=== PATIENT | female | born 1980 | race Caucasian/White ===

== ENCOUNTER 2020-08-28 09:45 | Outpatient (REF) | payer OTHER, SELFPAY ==
[2020-08-28 11:03] LABS: MANUAL DIFF FLAG NO
[2020-08-28 11:17] LABS: Basophils Absolute Auto 0.1 X10*3/uL (0.0-0.2); Eosinophils Percent Auto 0.5 % (0-4); Hematocrit 38.9 % (37-47); Hemoglobin 12.8 g/dl (12.0-16.0); Imm Gran Abs Auto 0.02 X10*3/uL (0.00-0.03); Imm Gran Pct Auto 0.3 % (0.0-0.4); Lymphocytes Absolute Auto 1.6 X10*3/uL (1.2-4.9); Lymphocytes Percent Auto 27.3 % (20-40); Mean Corpuscular HGB Conc 32.9 g/dl (31.0-35.0); Mean Corpuscular Hemoglobin 30.9 pg (27.0-33.0); Mean Platelet Volume 10.5 fL (9.4-12.3); Monocytes Absolute Auto 0.3 X10*3/uL (0.1-1.2); Monocytes Percent Auto 5.8 % (2-11); Neutrophils Absolute Auto 3.8 X10*3/uL (2.0-8.3); Neutrophils Percent Auto 65.1 % (45-73); Platelet Count 272 X10*3/uL (160-400); Red Blood Count 4.14 X10*6/uL (4.20-5.50); Red Cell Distribution Width 11.8 % (11.0-16.0); White Blood Count 5.9 X10*3/uL (4.8-10.8)
[2020-08-28 12:12] LABS: Anion Gap 10 (12-20); Blood Urea Nitrogen 15 mg/dL (9-16); Calcium 8.2 mg/dL (8.4-10.2); Carbon Dioxide 25 mmol/L (22-29); Chloride 107 mmol/L (96-108); Cholesterol 159 mg/dL; Estimated Glomerular Filt Rate > 60; Glucose Fasting 69 mg/dL (60-99); HDL Cholesterol 46 mg/dL; LDL Cholesterol Calculated 104 mg/dl; Potassium 3.9 mmol/l (3.3-5.1); Sodium 138 mmol/L (135-145); Triglycerides 46 mg/dL
== END 2020-08-28 09:46 | disposition home or self-care (01) ==
LOC: HO.HMGCLDS 09:45
PROVIDERS: PCP Internal Medicine; Visit Provider Internal Medicine
DX: Z00.00 Encounter for general adult medical examination without abnormal findings (principal)
CPT/HCPCS: 36415; 80048; 80061; 85025

== ENCOUNTER 2020-11-06 14:27 | Outpatient (REF) | payer OTHER, SELFPAY ==
--- NOTE | ~2020-11-06 | MM_ITS ---
EXAMINATION: MM DIAGNOSTIC DIGITAL BREAST TOMOSYNTHESIS, RIGHT US DIAGNOSTIC ULTRASOUND BREAST, RIGHT CLINICAL INFORMATION: Palpable fullness noted at clinical exam right breast 8:00 position. No palpable concern noted by patient. No discharge or mastodynia. Family history breast cancer, maternal grandmother. The lifetime risk of breast cancer based on the Tyrer-Cuzick Model is 15%. COMPARISON: Mammography: 05/22/2020, 07/30/2018 (baseline) TECHNIQUE: Digital breast tomosynthesis is performed in both the craniocaudal and mediolateral oblique views along with computer-aided detection (CAD). Synthesized 2D images are generated from the tomosynthesis. Ultrasound right breast is targeted to the 7:00 through 10:00 position. Grayscale imaging and color Doppler are performed without and with harmonics. FINDINGS: The breasts are heterogeneously dense, which may obscure small masses (ACR BI-RADS breast composition Category c). There are no significant masses, abnormal calcifications, or other abnormalities. Parenchymal pattern is similar to prior studies. No developing density. No skin thickening or coarsening of the Brian's ligaments. Ultrasound right breast demonstrates no cystic or solid mass, architectural abnormality, or focal duct ectasia. No skin thickening or edema tracking in soft tissue planes. Results are discussed with the patient at time of visit. MM/MM tomosynthesis diagnostic RT IMPRESSION: No mammographic evidence of malignancy. Unremarkable right breast ultrasound. ASSESSMENT: BI-RADS 1: Negative RECOMMENDATION: 1. Patient should be managed based on the clinical impression. If clinically indicated, further evaluation may be considered with surgical consult. Decision to proceed with biopsy should be based on clinical grounds and degree of clinical concern. 2. Otherwise, routine annual screening mammography, beginning age 40, or earlier as clinical risk factors warrant. This patient's information was entered into a reminder system with a target due date for their next mammogram.
== END 2020-11-06 14:28 | disposition home or self-care (01) ==
LOC: HO.MAMMO 14:27
PROVIDERS: PCP Internal Medicine; Visit Provider Internal Medicine
DX: N63.13 Unspecified lump in the right breast, lower outer quadrant (principal)
CPT/HCPCS: 76642; 77061; 77065

== ENCOUNTER 2022-05-10 10:06 | Outpatient (REF) | payer OTHER, SELFPAY ==
--- NOTE | ~2022-05-10 | XR_ITS ---
EXAMINATION: XR CHEST CLINICAL INFORMATION: Acute respiratory infection. COMPARISON: 04/22/2020 TECHNIQUE: 2 views of the chest were obtained. FINDINGS: Lungs are well-inflated and clear. Trachea is midline in position. No interstitial disease, consolidation or mass. No pleural effusion or pneumothorax. Cardiac silhouette and pulmonary vessels are normal in size. The mediastinum and vikki have normal contour. The visualized bones, and upper abdomen, are unremarkable. XR/XR chest 2V IMPRESSION: No acute cardiopulmonary abnormality.
== END 2022-05-10 10:07 | disposition home or self-care (01) ==
LOC: HO.HMGCX 10:06
PROVIDERS: PCP Internal Medicine; Visit Provider Physician Assistant
DX: J06.9 Acute upper respiratory infection, unspecified (principal)
CPT/HCPCS: 71046

== ENCOUNTER 2022-07-21 15:56 | Outpatient (REF) | payer OTHER, SELFPAY ==
--- NOTE | 2022-07-21 17:18 | PFT_ITS ---
INDICATION: Cough. SPIROMETRY: FEV1 to FVC of 82% with an FEV1 of 37 L, which is 122% predicted, FVC of 4.45 L, which is 120% predicted. No significant response to bronchodilators noted. Maximum voluntary ventilation 126% predicted. LUNG VOLUMES: Total lung capacity 118% predicted. DIFFUSION CAPACITY: DLCO 102% predicted. Flow volume loop looks to be very normal. Does have a slight sawtooth pattern during the inspiratory phase. INTERPRETATION: No obstructive nor restrictive ventilatory defects identified. No significant response to bronchodilators noted. Normal maximum voluntary ventilation. Lung volumes and diffusion capacity are all within normal limits. Again, some sawtooth to the inspiratory phase, which sometimes could be secondary to vocal cord fasciculation. Otherwise if asthma is in the differential, methacholine challenge may be helpful in assessing for hyper-reactive airways. Otherwise clinical diagnosis is warranted. MD KRISTEL Cardona/MODL / [id number]
== END 2022-07-21 15:57 | disposition home or self-care (01) ==
LOC: HO.RESP 15:56
PROVIDERS: PCP Internal Medicine; Visit Provider Internal Medicine
DX: R06.02 Shortness of breath (principal); R05.9 Cough, unspecified
CPT/HCPCS: 94060; 94727; 94729

== ENCOUNTER 2023-03-30 12:37 | Outpatient (REF) | payer OTHER, SELFPAY ==
--- NOTE | ~2023-03-30 | MM_ITS ---
EXAMINATION: MM SCREENING DIGITAL BREAST TOMOSYNTHESIS, BILATERAL CLINICAL INFORMATION: Screening. Asymptomatic. The lifetime risk of breast cancer based on the Tyrer-Cuzick Model is 14.6%. COMPARISON: Mammography: This study is compared with prior exams dating back to 2018. TECHNIQUE: Digital breast tomosynthesis is performed in both the craniocaudal and mediolateral oblique views along with computer-aided detection (CAD). Synthesized 2D images are generated from the tomosynthesis. FINDINGS: The breasts are heterogeneously dense, which may obscure small masses (ACR BI-RADS breast composition Category c). There are no significant masses, abnormal calcifications, or other abnormalities. MM/MM tomosynthesis screening BI IMPRESSION: No mammographic evidence of malignancy. ASSESSMENT: BI-RADS BI-RADS 1 - Negative RECOMMENDATION: Routine annual mammography screening. 1 year F/U This examination should not preclude the clinical evaluation of a suspicious palpable abnormality. This patient's information was entered into a reminder system with a target due date for their next mammogram.
== END 2023-03-30 12:38 | disposition home or self-care (01) ==
LOC: HO.MAMMO 12:37
PROVIDERS: PCP Internal Medicine; Visit Provider Internal Medicine
DX: Z12.31 Encounter for screening mammogram for malignant neoplasm of breast (principal)
CPT/HCPCS: 77063; 77067

== ENCOUNTER → 2023-03-30 13:45 | Outpatient (BNV) | payer OTHER, SELFPAY | PROVIDERS: PCP Internal Medicine; Visit Provider Radiology Diagnostic Radiology | DX: Z12.31 Encounter for screening mammogram for malignant neoplasm of breast (principal) | CPT/HCPCS: 77063; 77067 ==

== ENCOUNTER 2023-05-05 10:06 | Outpatient (AMB) | payer OTHER, SELFPAY ==
--- NOTE | 2023-05-05 10:03 | A.OFFPC_ITS ---
Intake Visit Reasons: 6M follow up Allergies No Known Allergies [NKA] Allergy (Mild, Verified 05/05/23 10:04) NOT APPLICABLE Medication List - Last Reconciled 05/05/23 by Nathaniel Zeng MD citalopram 20 mg PO DAILY 90 days omeprazole 20 mg PO DAILY 90 days Tobacco use date assessed: 05/05/23 Dental Screening Dental Screen Date: 05/05/23 Did you have a dental visit in the last 12 months?: Yes Did you have a dental problem in the last 6 months where you did not have access to dental care?: No Was dental information given to patient?: No HPI 6M follow up HPI Details Patient is a 42-year-old female this is a telemedicine video follow-up Patient is taking citalopram 20 mg she is feeling fine there is no anxiety no depression patient has no side effects. She also take omeprazole 20 mg for dyspepsia which is also helping her. Patient was supposed to have labs done order was placed 6 months ago but she still has not done them reminded patient that last set of lab I have in chart is from 2019 It is very important that we get labs done at least once a year since she is taking medications. She has a physical exam appointment 16 of November [facility] Surgical History No pertinent past surgical history Family History Father HTN (hypertension) Meniere's disease Mother No problems noted. Maternal Grandmother Breast cancer Maternal Grandfather No problems noted. Paternal Grandmother Cancer Paternal Grandfather Unknown family medical history Brother No problems noted. Brother No problems noted. Sister No problems noted. Daughter No problems noted. Social History Housing: House Alcohol intake: current Alcohol intake frequency: holidays/special occasions only Patient Tobacco Use Status: Never used Tobacco e-Cigarette/Vaping Use: Never Used Second Hand Smoke Exposure: Yes service: No Current occupational status: employed Cognitive needs: No Hearing needs: No Vision needs: Yes Questionnaire Thrive Questionnaire Date Thrive assessed: 11/02/22 AUDIT C Alcohol Use Questionnaire (AUDIT-C) 1. How often do you have a drink containing alcohol?: Never 3. How often do you have six or more drinks on one occasion?: Never Total Score: 0 Score Reviewed/Action Taken: Yes DALLAS-7 AMB Questionnaire DALLAS-7 Date DALLAS - 7 assessed: 11/02/22 Source: Developed by Drs. Ric Sy, Betty Winters, Del Christensen and colleagues, with an educational ty from [employer]. Review of Systems Const Denies chills and Denies fever(s) ENT Denies epistaxis and Denies nasal discharge Card Denies chest pain Resp Denies chest congestion, Denies cough and Denies hemoptysis GI Denies diarrhea and Denies nausea Skin/Breast Denies rash Neuro Reports no additional complaints Psych Reports no additional complaints Endo Reports no additional complaints Physical exam (Primary Care) Tobacco/Smoking Status: Tobacco use Status Tobacco use date assessed 05/05/23 05/05/23 10:05 Patient Tobacco Use Status Never used Tobacco 05/05/23 10:05 e-Cigarette/Vaping Use Never Used 05/05/23 10:05 Thrive Assessment: Date of Thrive Assessment Date Thrive assessed 11/02/22 05/05/23 10:05 Telehealth Telehealth Location of provider rendering services: practice address Location of patient: address on file Patient Identification confirmed using: Name, : Yes Telehealth method: video Patient verbally consented to treatment: Yes Patient verbally consented to billing insurance company: Yes Patient informed of any privacy concerns related to visit: Yes Minutes spent on Phone/Video with Pt.: 13 Assessment and Plan Assessment & Plan (1) Major depression, recurrent: Code(s): F33.9 - Major depressive disorder, recurrent, unspecified (2) Chronic GERD: Code(s): K21.9 - Gastro-esophageal reflux disease without esophagitis Plan Patient is a 42-year-old female this is a telemedicine video follow-up Patient is taking citalopram 20 mg she is feeling fine there is no anxiety no depression patient has no side effects. She also take omeprazole 20 mg for dyspepsia which is also helping her. Patient was supposed to have labs done order was placed 6 months ago but she still has not done them reminded patient that last set of lab I have in chart is from 2019 It is very important that we get labs done at least once a year since she is taking medications. She has a physical exam appointment 16 of November Coding Level of Care Code Tele Est Pt Level 3 (56897) Diagnoses Major depression, recurrent F33.9 Chronic GERD K21.9
== END 2023-05-05 12:06 | disposition home or self-care (01) ==
LOC: HO.HMGC 10:06
PROVIDERS: PCP Internal Medicine; Visit Provider Internal Medicine
DX: F33.9 Major depressive disorder, recurrent, unspecified (principal); K21.9 Gastro-esophageal reflux disease without esophagitis
CPT/HCPCS: 99213

== ENCOUNTER 2023-08-17 14:41 | Outpatient (AMB) | payer OTHER, SELFPAY ==
[2023-08-17 15:13] VITALS: BP 112/76; PULSE 82; TEMP 36.2; O2SAT 98
--- NOTE | 2023-08-17 15:13 | MHC.OFFWIV ---
Intake Vital Signs 08/17/23 15:13 Height 5 ft 4 in Weight 14 lb BMI 2.4 BP 112/76 Blood Pressure Location Rt brachial Position Sitting Pulse 82 Pulse Source Pulse Oximeter Temp 97.2 F Temp Source Temporal Artery Scan Pulse Oximetry (%) 98 Oxygen Delivery Method Room Air Intake Visit Reasons: EP Migraines since Sat [phone] Intake Note: pt is here today for migraines started 08/13 Patient Tobacco Use Status: Never used Tobacco Allergies No Known Allergies [NKA] Allergy (Mild, Verified 08/17/23 15:30) NOT APPLICABLE Do you need a note to return to daycare/school/sports/work: Yes HPI HPI Comments History of Present Illness Details The patient presents to the Urgent Care for evaluation of migraine headache. She has been suffering with migraines for years was previously prescribed Imitrex without any relief. She states that typically she uses Excedrin when she has a migraine which has been helpful however it has not been helpful in relieving this particular headache. Headache started on Monday and has been intermittent and there are times where she will have some relief. She denies fever chills vomiting no URI type symptoms. She complains of some nausea associated with headache. No photophobia. Patient has been at work all week as she has been unable to take time off. [facility] Surgical History No pertinent past surgical history Family History Father HTN (hypertension) Meniere's disease Mother No problems noted. Maternal Grandmother Breast cancer Maternal Grandfather No problems noted. Paternal Grandmother Cancer Paternal Grandfather Unknown family medical history Brother No problems noted. Brother No problems noted. Sister No problems noted. Daughter No problems noted. Social History Housing: House Alcohol intake: current Alcohol intake frequency: holidays/special occasions only Patient Tobacco Use Status: Never used Tobacco e-Cigarette/Vaping Use: Never Used Second Hand Smoke Exposure: Yes service: No Current occupational status: employed Cognitive needs: No Hearing needs: No Vision needs: Yes Physical Exam Vital Signs: Last Vital Signs Temp 97.2 F 08/17/23 15:13 Pulse 82 11/30/23 15:13 BP 112/76 08/17/23 15:13 Pulse Ox 98 08/17/23 15:13 Oxygen Delivery Method Room Air 08/17/23 15:13 BMI result Body Mass Index 2.4 Const General: healthy appearing and no acute distress Orientation/consciousness: patient oriented x3 HEENT Head: Yes normal to inspection Eyes General: appearance normal, both eyes and all related structures Corneas: corneas normal Pupils: Equal, round and reactive pupils present EOM: EOMs intact bilaterally Direct Ophthalmoscopy: normal light reflex Chest Chest palpation & inspection: no tenderness Resp Effort & Inspection: normal respiratory effort and able to speak in complete sentences Auscultation: clear to auscultation bilaterally GI Palpation (GI): nontender Neuro General: patient oriented x3 Cranial nerves: Yes Equal, round and reactive pupils present Psych Appearance: grossly normal Attitude: cooperative Assessment & Plan Assessment & Plan (1) Migraine headache: Code(s): G43.909 - Migraine, unspecified, not intractable, without status migrainosus Plan Migraine headache. Will prescribe Fioricet and patient has relief with this. Work note offered but declined. Patient was urged to go to the ER if symptoms persist or worsen or she could get better migraine relief. Medications: New ycfglvtsyv-gaogdvipbt-gmf-cod [id number] mg (Fioricet with Codeine) 1 cap PO Q4H PRN 14 caps 0RF pain Coding Level of Care Code Est Pt Level 3 (47816) Diagnoses Migraine headache G43.909
== END 2023-08-17 16:11 | disposition home or self-care (01) ==
PROVIDERS: PCP Internal Medicine; Visit Provider Emergency Medicine
DX: G43.909 Migraine, unspecified, not intractable, without status migrainosus (principal)
CPT/HCPCS: 99213

== ENCOUNTER 2023-10-25 08:54 | Outpatient (AMB) | payer OTHER, SELFPAY ==
[2023-10-25 08:55] VITALS: BP 116/68; PULSE 92; TEMP 37; O2SAT 99; BMI 23.9
--- NOTE | 2023-10-25 08:55 | AM.OFFWIN_ITS ---
Intake Vital Signs 10/25/23 08:55 Height 5 ft 4 in Weight 139 lb BMI 23.9 BP 116/68 Blood Pressure Location Lt brachial Position Sitting Pulse 92 Pulse Source Pulse Oximeter Temp 98.6 F Temp Source Temporal Artery Scan Pulse Oximetry (%) 99 Oxygen Delivery Method Room Air Intake Visit Reasons: EP sore throat body aches sore throat [id number] Intake Note: pt is here today for sore throat body aches started monday Patient Tobacco Use Status: Never used Tobacco Allergies No Known Allergies [NKA] Allergy (Mild, Verified 10/25/23 08:57) NOT APPLICABLE Do you need a note to return to daycare/school/sports/work: Yes HPI HPI Comments History of Present Illness Details This is a 43-year-old female with a past medical history of gastroesophageal reflux disease and depression presenting for evaluation of body aches, sore throat, fevers, chills and cough that she has had since Monday. Patient has been taking TheraFlu without relief of her symptoms. 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 [facility] Surgical History No pertinent past surgical history Family History Father HTN (hypertension) Meniere's disease Mother No problems noted. Maternal Grandmother Breast cancer Maternal Grandfather No problems noted. Paternal Grandmother Cancer Paternal Grandfather Unknown family medical history Brother No problems noted. Brother No problems noted. Sister No problems noted. Daughter No problems noted. Social History Housing: House Alcohol intake: current Alcohol intake frequency: holidays/special occasions only Patient Tobacco Use Status: Never used Tobacco e-Cigarette/Vaping Use: Never Used Second Hand Smoke Exposure: Yes service: No Current occupational status: employed Cognitive needs: No Hearing needs: No Vision needs: Yes Review of Systems Const All systems reviewed & are unremarkable except as noted in HPI and below Reports body aches, Reports chills, Reports fever(s) and Denies headache(s) Eyes Reports as per HPI ENT Denies otalgia, Denies headache(s), Denies sinus pressure, Reports sore throat and Denies throat swelling Card Reports no additional complaints and Denies dyspnea Resp Reports no additional complaints, Reports cough and Denies dyspnea GI Reports no additional complaints Skin/Breast Reports system reviewed and no additional complaints, except as documented Neuro Denies headache(s) Psych Reports no additional complaints Aller/Immun Denies throat swelling Physical Exam Vital Signs: Last Vital Signs Temp 98.6 F 10/25/23 08:55 Pulse 92 10/25/23 08:55 BP 116/68 10/25/23 08:55 Pulse Ox 99 10/25/23 08:55 Oxygen Delivery Method Room Air 10/25/23 08:55 BMI result Body Mass Index 23.9 Patient is afebrile, POX 99% Const General: cooperative, healthy appearing, comfortable and no acute distress Nutritional Appearance: average body habitus Orientation/consciousness: patient oriented x3 Limitations: no limitations HEENT Head: Yes normal to inspection and Yes normocephalic Ears: hearing grossly normal bilaterally, external ears normal, right TM abnormal (TM bulging without erythema), TM normal on the left and EAC's normal General nose exam: Normal external nose present Face and sinus: Yes normal facial exam and Yes sinuses nontender Mouth: Normal oral and palatal mucosa present Teeth and gingiva: dentition normal and gingiva normal Throat: Yes postnasal drainage Eyes Eyelids: Yes eyelids normal Conjunctivae: conjunctivae normal Sclerae: sclerae normal Corneas: corneas normal Pupils: Equal, round and reactive pupils present EOM: EOMs intact bilaterally Neck Lymphatic: no lymphadenopathy noted Resp Effort & Inspection: normal respiratory effort, able to speak in complete sentences, no cough and no respiratory distress Auscultation: clear to auscultation bilaterally Cardio Rate: regular rate Rhythm: regular rhythm Skin General skin exam: no rashes or lesions noted Neuro General: patient oriented x3 Cranial nerves: Yes Equal, round and reactive pupils present Psych Appearance: grossly normal Mental Status: mental status grossly normal Insight: Good insight present (Psych) Judgement: Good judgement present (Psych) Results AMB Rapid Strep AMB Rapid Strep Negative Last Edit by Grace Batista CMA on 10/25/23 09:10 Results Reviewed Results Reviewed: Laboratory Last Values Strep Scn [facility] Negative 10/25/23 09:09 Rapid strep is negative. Assessment & Plan Assessment & Plan (1) Acute pharyngitis: Comment: Rapid strep test is negative. Code(s): J02.9 - Acute pharyngitis, unspecified Qualifiers: Pharyngitis/tonsillitis etiology: unspecified etiology Qualified Code(s): J02.9 - Acute pharyngitis, unspecified Plan: Ibuprofen or Tylenol as needed for discomfort, increase clear fluids daily. (2) Cough: Comment: COVID, influenza and RSV testing is initiated and pending. Code(s): R05.9 - Cough, unspecified Qualifiers: Cough type: acute Qualified Code(s): R05.1 - Acute cough Plan: Tylenol or ibuprofen as needed for fevers; work note provided for 2 days. Orders: Orders AMB Rapid Strep Screen 10/25/23 Z13.9 - Encounter for screening, unspecified SARS-CoV2/FLU/RSV 10/25/23 J02.9 - Acute pharyngitis, unspecified, R05.9 - Cough, unspecified Coding Level of Care Code [facility] Pt Level 3 (64711) Diagnoses Acute pharyngitis, unspecified etiology J02.9 Pharyngitis/tonsillitis etiology: unspecified etiology Acute cough R05.1 Cough type: acute Time Spent (min) 20
== END 2023-10-25 09:33 | disposition home or self-care (01) ==
PROVIDERS: PCP Internal Medicine; Visit Provider Physician Assistant
DX: J02.9 Acute pharyngitis, unspecified (principal); R05.1 Acute cough
CPT/HCPCS: 87880; 99213

== ENCOUNTER 2023-10-25 11:45 | Outpatient (REF) | payer OTHER, SELFPAY ==
[2023-10-25 12:56] LABS: Influenza A PCR NEGATIVE (Negative); Influenza B PCR NEGATIVE (Negative); Resp Syncy Virus RNA Qual PCR NEGATIVE (Negative); SARS COV2 PCR INHOUSE POSITIVE (Negative)
== END 2023-10-25 11:46 | disposition home or self-care (01) ==
LOC: HO.HMGCLNP 11:45
PROVIDERS: Visit Provider Physician Assistant
DX: Z11.52 Encounter for screening for COVID-19 (principal); Z20.822 Contact with and (suspected) exposure to COVID-19; J02.9 Acute pharyngitis, unspecified; R05.9 Cough, unspecified
CPT/HCPCS: 0241U

== ENCOUNTER 2023-10-27 14:16 | Outpatient (AMB) | payer OTHER, SELFPAY ==
[2023-10-27 14:29] VITALS: BP 122/70; PULSE 92; TEMP 36.6; O2SAT 97; BMI 24.5
--- NOTE | 2023-10-27 14:29 | AM.OFFWIN_ITS ---
Intake Vital Signs 10/27/23 14:29 Height 5 ft 4 in Weight 143 lb BMI 24.5 BP 122/70 Blood Pressure Location Lt brachial Position Sitting Pulse 92 Pulse Source Pulse Oximeter Temp 97.8 F Temp Source Temporal Artery Scan Pulse Oximetry (%) 97 Oxygen Delivery Method Room Air Intake Visit Reasons: EP Covid Pos here for cough [id number] Intake Note: pt is here today for covid pos here for cough started monday Patient Tobacco Use Status: Never used Tobacco Allergies No Known Allergies [NKA] Allergy (Mild, Verified 10/27/23 14:29) NOT APPLICABLE Do you need a note to return to daycare/school/sports/work: Yes HPI HPI Comments History of Present Illness Details 43 y/o female who presents to walk in [facility] with c/o Cough since Monday. She was seen here 10/25 and tested Positive for COVID-19 infection. Reports dry to productive cough non stop. She is unable to sleep due to coughing. Reports chest pain due to coughing. She has tried numerous OTC medications with no relief. [facility] Surgical History No pertinent past surgical history Family History Father HTN (hypertension) Meniere's disease Mother No problems noted. Maternal Grandmother Breast cancer Maternal Grandfather No problems noted. Paternal Grandmother Cancer Paternal Grandfather Unknown family medical history Brother No problems noted. Brother No problems noted. Sister No problems noted. Daughter No problems noted. Social History Housing: House Alcohol intake: current Alcohol intake frequency: holidays/special occasions only Patient Tobacco Use Status: Never used Tobacco e-Cigarette/Vaping Use: Never Used Second Hand Smoke Exposure: Yes service: No Current occupational status: employed Cognitive needs: No Hearing needs: No Vision needs: Yes Review of Systems Const All systems reviewed & are unremarkable except as noted in HPI and below Physical Exam Vital Signs: Last Vital Signs Temp 97.8 F 10/27/23 14:29 Pulse 92 10/27/23 14:29 BP 122/70 10/27/23 14:29 Pulse Ox 97 10/27/23 14:29 Oxygen Delivery Method Room Air 10/27/23 14:29 BMI result Body Mass Index 24.5 Const General: no acute distress; No comfortable HEENT Head: Yes normocephalic Ears: external ears normal and TM's normal bilaterally General nose exam: Normal nares present and No nasal discharge present Face and sinus: Yes sinuses nontender Throat: Yes posterior oropharynx normal Resp Effort & Inspection: normal respiratory effort and Actively coughing Quality: actively coughing Auscultation: clear to auscultation bilaterally, no crackles, no rales, no rhonchi and no wheezes Cardio Rate: regular rate Rhythm: regular rhythm Assessment & Plan Assessment & Plan (1) Cough: Code(s): R05.9 - Cough, unspecified Qualifiers: Cough type: acute Qualified Code(s): R05.1 - Acute cough Plan: - Chest Xray - Rest and hydrate well with warm fluids - Humidifier - Report any Signs SOB, wheezing, high fevers, nausea and vomiting. (2) Suspected COVID-19 virus infection: Code(s): Z20.822 - Contact with and (suspected) exposure to COVID-19 Plan: - Chest Xray - Rest and hydrate well with warm fluids - Humidifier - Report any Signs SOB, wheezing, high fevers, nausea and vomiting. Orders: Orders XR chest 2V Today R05.9 - Cough, unspecified, Z20.822 - Contact with and (suspected) exposure to COVID-19 Medications: New dextromethorphan-guaifenesin 5-50 mg/5 mL 20 mL PO Q4-6H PRN 118 mL 0RF cough R05.9 - Cough, unspecified, Z20.822 - Contact with and (suspected) exposure to COVID-19 azithromycin 500 mg PO DAILY 3 days 3 tabs 0RF R05.9 - Cough, unspecified benzonatate 200 mg (2 x 100 mg) PO TID 30 caps 0RF Coding Level of Care Code Est Pt Level 3 (93374) Diagnoses Acute cough R05.1 Cough type: acute Suspected COVID-19 virus infection Z20.822 Time Spent (min) 15
== END 2023-10-27 15:27 | disposition home or self-care (01) ==
PROVIDERS: PCP Internal Medicine; Visit Provider Nurse Practitioner Family
DX: R05.1 Acute cough (principal); Z20.822 Contact with and (suspected) exposure to COVID-19
CPT/HCPCS: 99213

== ENCOUNTER 2023-10-27 15:12 | Outpatient (REF) | payer OTHER, SELFPAY ==
--- NOTE | ~2023-10-27 | XR_ITS ---
EXAMINATION: XR CHEST CLINICAL INFORMATION: Cough since Monday. Positive Covid 19 infection. COMPARISON: None available. TECHNIQUE: 2 views of the chest were obtained. FINDINGS: No significant abnormality is noted involving the heart, lungs, mediastinum, bony thorax or soft tissues. XR/XR chest 2V IMPRESSION: Unremarkable examination.
== END 2023-10-27 15:13 | disposition home or self-care (01) ==
LOC: HO.HMGCX 15:12
PROVIDERS: PCP Internal Medicine; Visit Provider Nurse Practitioner Family
DX: R05.9 Cough, unspecified (principal); Z20.822 Contact with and (suspected) exposure to COVID-19
CPT/HCPCS: 71046

== ENCOUNTER 2023-11-17 10:07 | Outpatient (AMB) | payer OTHER, SELFPAY ==
[2023-11-17 10:11] VITALS: BP 116/66; PULSE 72; O2SAT 98; BMI 24.6
--- NOTE | 2023-11-17 10:11 | MHC.PC.OV ---
Vital Signs 11/17/23 10:11 Height 5 ft 4 in Weight 143 lb 6 oz BMI 24.6 BP 116/66 Blood Pressure Location Rt brachial Position Sitting Pulse 72 Pulse Source Pulse Oximeter Pulse Oximetry (%) 98 Oxygen Delivery Method Room Air Intake Visit Reasons: PE Is last menstrual period known: Yes Last menstrual period: 11/02/23 Allergies No Known Allergies [NKA] Allergy (Mild, Verified 11/17/23 10:12) NOT APPLICABLE Medication List - Last Reconciled 11/17/23 by Nathaniel Zeng MD citalopram 20 mg PO DAILY 90 days omeprazole 20 mg PO DAILY 90 days Tobacco use date assessed: 11/17/23 Dental Screening Dental Screen Date: 11/17/23 Did you have a dental visit in the last 12 months?: Yes Did you have a dental problem in the last 6 months where you did not have access to dental care?: No Was dental information given to patient?: Patient has dentist HPI PE HPI Details Patient is a 43-year-old female came in today for physical examination Need a referral to OBGYN for Pap smear and breast exam Mammogram was March of last year Patient had a COVID infection early September and she still having lot of coughing Especially when she laughs or talks a lot She is taking [id number]-[id number] cough medicine which is not helping much Her lungs are clear on auscultation today I have added Symbicort inhaler she is to start taking 2 in addition in the morning and 2 12 hours later We will set up a telemedicine visit in 3 weeks to see how she is doing Labs ordered to be done fasting She had chest x-ray after she had COVID and that was clear [facility] Surgical History No pertinent past surgical history Family History Father HTN (hypertension) Meniere's disease Mother No problems noted. Maternal Grandmother Breast cancer Maternal Grandfather No problems noted. Paternal Grandmother Cancer Paternal Grandfather Unknown family medical history Brother No problems noted. Brother No problems noted. Sister No problems noted. Daughter No problems noted. Social History Housing: House Alcohol intake: current Alcohol intake frequency: holidays/special occasions only Patient Tobacco Use Status: Never used Tobacco e-Cigarette/Vaping Use: Never Used Second Hand Smoke Exposure: Yes service: No Current occupational status: employed Cognitive needs: No Hearing needs: No Vision needs: Yes Female Reproductive History Menstrual Date of last menstrual period: 11/02/23 Questionnaire PHQ-9 Over the last 2 weeks, how often have you been bothered by any of the following problems? 1. Little interest or pleasure in doing things: several days 2. Feeling down, depressed, or hopeless: several days 3. Trouble falling or staying asleep, or sleeping too much: not at all 4. Feeling tired or having little energy: several days 5. Poor appetite or overeating: not at all 6. Feeling bad about yourself - or that you are a failure or have let yourself or your family down: not at all 7. Trouble concentrating on things, such as reading the newspaper or watching television: not at all 8. Moving or speaking so slowly that other people could have noticed. Or the opposite - being so fidgety or restless that you have been moving around a lot more than usual: not at all 9. Thoughts that you would be better off or of hurting yourself in some way: not at all Total score: 3 Depression Screening Interpretation: Negative Depression Screening Done: Yes 56757 - PHQ-9 Billing: Yes Source: Developed by Drs. Ric Sy, Betty Winters, Del Christensen and colleagues, with an educational ty from [employer] Thrive Questionnaire Date Thrive assessed: 11/17/23 I am a: Patient What is your living situation today?: I have a steady place to live Within the past 12 months, did the food you bought not last and you didn't have the money to get more?: Never true Within the past 12 months, did you worry whether your food would run out before you got money to buy more?: Never true Do you have trouble paying for medicines?: No Do you have trouble getting transportation to medical appointments?: No Do you have trouble paying your heating and electricity bill?: No Do you have trouble taking care of your child, family member or friend?: No Do you have trouble with day-to-day activities such as bathing, preparing meals, shopping, managing finances, etc.?: No Are you currently unemployed and looking for a job?: No Are you interested in more education?: No Please select the resources that you would like help with: None Currently or been in a relationship where the following occur: no concerns reported THRIVE Score: 0 DALLAS-7 AMB Questionnaire DALLAS-7 Date DALLAS - 7 assessed: 11/17/23 Feeling nervous, anxious, or on edge: 1 = Several days Not being able to stop or control worryin = Not at all Worrying too much about different things: 1 = Several days Trouble relaxin = Several days Being so restless that it is hard to sit still: 1 = Several days Becoming easily annoyed or irritable: 1 = Several days Feeling afraid as if something awful might happen: 0 = Not at all Total DALLAS-7 score (0-4 normal; 5-9 mild; 10-14 moderate; 15-21 severe): 5 Source: Developed by Drs. Ric Sy, Betty Winters, Del Christensen and colleagues, with an educational ty from [employer]. DALLAS-7 Assessment Billing DALLAS-7 Assessment Tool: DALLAS-7 Assessment 24009 Review of Systems Const Denies chills, Denies fever(s) and Denies headache(s) Eyes Denies blurry vision ENT Denies headache(s), Denies nasal discharge, Denies nasal obstruction, Denies odynophagia and Denies sinus pain Card Denies chest pain at rest and Denies chest pain with activity Resp Denies hemoptysis GI Denies diarrhea, Denies odynophagia, Denies vomiting and Denies hematemesis Reports as per HPI Musc Denies abnormal gait Skin/Breast Reports as per HPI Neuro Denies Neuro-related abnormal movements, Denies Abnormal speech present, Denies abnormal gait, Denies headache(s) and Denies Sensory deficit (Neuro) Psych Denies mood swings and Denies paranoia Endo Reports as per HPI Zan/Lymph Reports as per HPI Aller/Immun Reports as per HPI Physical exam (Primary Care) Vital Signs: Last Vital Signs Pulse 72 11/17/23 10:11 BP 116/66 11/17/23 10:11 Pulse Ox 98 11/17/23 10:11 Oxygen Delivery Method Room Air 11/17/23 10:11 BMI result Body Mass Index 24.6 Tobacco/Smoking Status: Tobacco use Status Tobacco use date assessed 11/17/23 11/17/23 10:14 Patient Tobacco Use Status Never used Tobacco 11/17/23 10:14 e-Cigarette/Vaping Use Never Used 11/17/23 10:14 PHQ-9: PHQ-9 Score PHQ-9: Total score 3 11/17/23 10:35 Depression Screening Interpretation: Negative Thrive Assessment: Date of Thrive Assessment Date Thrive assessed 11/17/23 11/17/23 10:35 Currently or been in a relationship where the following occur: no concerns reported Const General: cooperative, comfortable and no acute distress Orientation/consciousness: patient oriented x3 HENMT Head: Yes normocephalic and Yes atraumatic Eyes General: appearance normal, both eyes and all related structures Pupils: Equal, round and reactive pupils present EOM: EOMs intact bilaterally Neck Neck: Yes supple and No lymphadenopathy Thyroid: Thyroid normal Lymphatic: no lymphadenopathy noted Resp Effort & Inspection: normal respiratory effort and able to speak in complete sentences Auscultation: clear to auscultation bilaterally Cardio Heart sounds: S1 normal heart sound present and S2 normal heart sound present GI Palpation (GI): Soft to palpation and nontender Auscultation: normal bowel sounds General: Yes no CVA tenderness Back/Spine/Pelvis Back: no CVA tenderness Skin General skin exam: elasticity normal and turgor normal Neuro General: patient oriented x3 and gait normal Cranial nerves: Yes Equal, round and reactive pupils present Speech: No Abnormal speech present Sensory Exam: No Sensory deficit (Neuro) Coordination: tandem gait normal and Romberg test negative Extrem General: Yes normal exam except as noted and No edema Assessment and Plan Assessment & Plan (1) Encounter for general adult medical examination with abnormal findings: Code(s): Z00.01 - Encounter for general adult medical examination with abnormal findings (2) Cough: Code(s): R05.9 - Cough, unspecified Qualifiers: Cough type: acute Qualified Code(s): R05.1 - Acute cough (3) Chronic GERD: Code(s): K21.9 - Gastro-esophageal reflux disease without esophagitis (4) Major depression, recurrent: Code(s): F33.9 - Major depressive disorder, recurrent, unspecified Qualifiers: Active/Remission status: in full remission Qualified Code(s): F33.42 - Major depressive disorder, recurrent, in full remission Plan Patient is a 43-year-old female came in today for physical examination Need a referral to OBGYN for Pap smear and breast exam Mammogram was March of last year Patient had a COVID infection early September and she still having lot of coughing Especially when she laughs or talks a lot She is taking xale-qeq-dutgmwn cough medicine which is not helping much Her lungs are clear on auscultation today I have added Symbicort inhaler she is to start taking 2 in addition in the morning and 2 12 hours later We will set up a telemedicine visit in 3 weeks to see how she is doing Labs ordered to be done fasting She had chest x-ray after she had COVID and that was clear Orders: Orders Lipid Panel Today F33.9 - Major depressive disorder, recurrent, unspecified, K21.9 - Gastro-esophageal reflux disease without esophagitis, R05.9 - Cough, unspecified, Z00.01 - Encounter for general adult medical examination with abnormal findings TSH reflex Free T4 Today F33.9 - Major depressive disorder, recurrent, unspecified, K21.9 - Gastro-esophageal reflux disease without esophagitis, R05.9 - Cough, unspecified, Z00.01 - Encounter for general adult medical examination with abnormal findings Complete Blood Count Auto Diff Today F33.9 - Major depressive disorder, recurrent, unspecified, K21.9 - Gastro-esophageal reflux disease without esophagitis, R05.9 - Cough, unspecified, Z00.01 - Encounter for general adult medical examination with abnormal findings Comprehensive [place]. Panel Fast Today F33.9 - Major depressive disorder, recurrent, unspecified, K21.9 - Gastro-esophageal reflux disease without esophagitis, R05.9 - Cough, unspecified, Z00.01 - Encounter for general adult medical examination with abnormal findings Referrals [employer] Referral Z01.419 - Encounter for gynecological examination (general) (routine) without abnormal findings Medications: New budesonide-formoterol 160-4.5 mcg/actuation (Symbicort) 2 puffs inhalation BID 10.2 grams 3RF 30 days J45.909 - Unspecified asthma, uncomplicated Coding Level of Care Code Est Pt Prev Care 40-64y(57849) Diagnoses Encounter for general adult medical examination with abnormal findings Z00.01 Acute cough R05.1 Cough type: acute Chronic GERD K21.9 Recurrent major depressive disorder, in full remission F33.42 Active/Remission status: in full remission Additional Codes DALLAS-7 Assessment Billing - DALLAS-7 Assessment Tool: DALLAS-7 Assessment [id number] ([id number])
== END 2023-11-17 10:46 | disposition home or self-care (01) ==
PROVIDERS: Visit Provider Internal Medicine
DX: Z00.01 Encounter for general adult medical examination with abnormal findings (principal); R05.1 Acute cough; K21.9 Gastro-esophageal reflux disease without esophagitis; F33.42 Major depressive disorder, recurrent, in full remission
CPT/HCPCS: 99213; 99396

== ENCOUNTER 2023-12-07 08:40 | Outpatient (AMB) | payer OTHER, SELFPAY ==
--- NOTE | 2023-12-07 09:24 | MHC.PC.OV ---
Intake Visit Reasons: 3 week follow up Allergies No Known Allergies [NKA] Allergy (Mild, Verified 11/17/23 10:12) NOT APPLICABLE Medication List - Last Reconciled 12/07/23 by Nathaniel Zeng MD citalopram 20 mg PO DAILY 90 days omeprazole 20 mg PO DAILY 90 days Tobacco use date assessed: 11/17/23 HPI 3 week follow up HPI Details Patient is a 43-year-old female this is a telemedicine visit Last time patient seen 3 weeks ago she complained of coughing after having a COVID infection I sent a script for Symbicort which was not covered by her insurance. So she never started Patient says that she is feeling much better without inhaler now her cough has resolved. She also is requesting me to send her control pill that she was taking 2 years ago. We talked about control side effects further, I a think it will be reasonable for her to get it from OBGYN so they can monitor the side effects Like increased risk of clotting and certain cancers. Patient says that she will book the appointment with OBGYN if I can just sent 1 script However she does not remember the name of control she was on, patient will call me with the name. COUNT INCLUDES THE [facility] Surgical History No pertinent past surgical history Family History Father HTN (hypertension) Meniere's disease Mother No problems noted. Maternal Grandmother Breast cancer Maternal Grandfather No problems noted. Paternal Grandmother Cancer Paternal Grandfather Unknown family medical history Brother No problems noted. Brother No problems noted. Sister No problems noted. Daughter No problems noted. Social History Housing: House Alcohol intake: current Alcohol intake frequency: holidays/special occasions only Patient Tobacco Use Status: Never used Tobacco e-Cigarette/Vaping Use: Never Used Second Hand Smoke Exposure: Yes service: No Current occupational status: employed Cognitive needs: No Hearing needs: No Vision needs: Yes Questionnaire Thrive Questionnaire Date Thrive assessed: 11/17/23 DALLAS-7 AMB Questionnaire DALLAS-7 Date DALLAS - 7 assessed: 11/17/23 Source: Developed by Drs. Ric Sy, Betty Winters, Del Christensen and colleagues, with an educational ty from [employer]. Review of Systems Const Denies chills and Denies fever(s) ENT Denies epistaxis and Denies nasal discharge Card Denies chest pain Resp Denies chest congestion, Denies cough and Denies hemoptysis GI Denies diarrhea and Denies nausea Skin/Breast Denies rash Neuro Reports no additional complaints Psych Reports no additional complaints Endo Reports no additional complaints Physical exam (Primary Care) Tobacco/Smoking Status: Tobacco use Status Tobacco use date assessed 11/17/23 11/17/23 10:14 Patient Tobacco Use Status Never used Tobacco 11/17/23 10:14 e-Cigarette/Vaping Use Never Used 11/17/23 10:14 Thrive Assessment: Date of Thrive Assessment Date Thrive assessed 11/17/23 11/17/23 10:35 Telehealth Telehealth Location of provider rendering services: practice address Location of patient: address on file Patient Identification confirmed using: Name, : Yes Telehealth method: voice only Patient verbally consented to treatment: Yes Patient verbally consented to billing insurance company: Yes Patient informed of any privacy concerns related to visit: Yes Minutes spent on Phone/Video with Pt.: 14 Assessment and Plan Assessment & Plan (1) Cough: Code(s): R05.9 - Cough, unspecified Qualifiers: Cough type: acute Qualified Code(s): R05.1 - Acute cough (2) Heavy menstrual period: Code(s): N92.0 - Excessive and frequent menstruation with regular cycle Qualifiers: Menorrhagia type: with regular cycle Qualified Code(s): N92.0 - Excessive and frequent menstruation with regular cycle Plan Patient is a 43-year-old female this is a telemedicine visit Last time patient seen 3 weeks ago she complained of coughing after having a COVID infection I sent a script for Symbicort which was not covered by her insurance. So she never started Patient says that she is feeling much better without inhaler now her cough has resolved. She also is requesting me to send her control pill that she was taking 2 years ago. Patient says that her periods are very heavy, but controlled helps regulate the periods We talked about control side effects further, I a think it will be reasonable for her to get it from OBGYN so they can monitor the side effects Like increased risk of clotting and certain cancers. Patient says that she will book the appointment with OBGYN if I can just sent 1 script However she does not remember the name of control she was on, patient will call me with the name. Medications: Discontinued budesonide-formoterol 160-4.5 mcg/actuation (Symbicort) Discontinued Reason: No Longer Medically Relevant 2 puffs inhalation BID 30 days 10.2 grams 3RF J45.909 - Unspecified asthma, uncomplicated Coding Level of Care Code Tele Est Pt Level 3 (06669) Diagnoses Acute cough R05.1 Cough type: acute Menorrhagia with regular cycle N92.0 Menorrhagia type: with regular cycle
== END 2023-12-07 11:20 | disposition home or self-care (01) ==
LOC: HO.HMGC 08:40
PROVIDERS: PCP Internal Medicine; Visit Provider Internal Medicine
DX: R05.1 Acute cough (principal); N92.0 Excessive and frequent menstruation with regular cycle
CPT/HCPCS: 99213

== ENCOUNTER 2024-03-29 12:52 | Outpatient (AMB) | payer OTHER, SELFPAY ==
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
[2024-03-29 12:54] VITALS: BP 100/66; PULSE 87; O2SAT 97; BMI 23.3
== END 2024-03-29 13:13 | disposition home or self-care (01) ==
PROVIDERS: PCP Internal Medicine; Visit Provider Internal Medicine
DX: F33.42 Major depressive disorder, recurrent, in full remission (principal); F41.1 Generalized anxiety disorder; G47.9 Sleep disorder, unspecified; Z63.0 Problems in relationship with spouse or partner; F43.9 Reaction to severe stress, unspecified
CPT/HCPCS: 99214

== ENCOUNTER 2024-04-18 08:06 | Outpatient (AMB) | payer OTHER, SELFPAY ==
--- NOTE | 2024-04-18 08:30 | A.OFFPC_ITS ---
Intake Visit Reasons: 3 week follow up/[phone] Allergies No Known Allergies [NKA] Allergy (Mild, Verified 04/18/24 08:31) NOT APPLICABLE Medication List - Last Reconciled 04/18/24 by Nathaniel Zeng MD citalopram 40 mg PO DAILY 90 days lorazepam 0.5 mg PO BEDTIME PRN omeprazole 20 mg PO DAILY 90 days Tobacco use date assessed: 04/18/24 Dental Screening Dental Screen Date: 04/18/24 Did you have a dental visit in the last 12 months?: Yes Did you have a dental problem in the last 6 months where you did not have access to dental care?: No Was dental information given to patient?: Patient has dentist HPI 3 week follow up/[phone] HPI Details Patient is doing much better with increasing dose of citalopram 40 mg she is hardly ever taking lorazepam she would like to continue with 40 mg citalopram sleeping better less stressed PFSH Surgical History No pertinent past surgical history Family History Father HTN (hypertension) Meniere's disease Mother No problems noted. Maternal Grandmother Breast cancer Maternal Grandfather No problems noted. Paternal Grandmother Cancer Paternal Grandfather Unknown family medical history Brother No problems noted. Brother No problems noted. Sister No problems noted. Daughter No problems noted. Social History Housing: House Alcohol intake: current Alcohol intake frequency: holidays/special occasions only Patient Tobacco Use Status: Never used Tobacco e-Cigarette/Vaping Use: Never Used Second Hand Smoke Exposure: Yes service: No Current occupational status: employed Cognitive needs: No Hearing needs: No Vision needs: Yes Questionnaire Thrive Questionnaire Date Thrive assessed: 11/17/23 AUDIT C Alcohol Use Questionnaire (AUDIT-C) 1. How often do you have a drink containing alcohol?: Never 3. How often do you have six or more drinks on one occasion?: Never Total Score: 0 Score Reviewed/Action Taken: Yes DALLAS-7 AMB Questionnaire DALLAS-7 Date DALLAS - 7 assessed: 03/01/24 Source: Developed by Drs. Ric Sy, Betty Winters, Del Christensen and colleagues, with an educational ty from [employer]. Review of Systems Const Denies chills and Denies fever(s) ENT Denies epistaxis and Denies nasal discharge Card Denies chest pain Resp Denies chest congestion, Denies cough and Denies hemoptysis GI Denies diarrhea and Denies nausea Skin/Breast Denies rash Neuro Reports no additional complaints Psych Reports no additional complaints Endo Reports no additional complaints Physical exam (Primary Care) Tobacco/Smoking Status: Tobacco use Status Tobacco use date assessed 04/18/24 04/18/24 08:31 Patient Tobacco Use Status Never used Tobacco 04/18/24 08:31 e-Cigarette/Vaping Use Never Used 04/18/24 08:31 Thrive Assessment: Date of Thrive Assessment Date Thrive assessed 11/17/23 04/18/24 08:31 Telehealth Telehealth Telehealth Platform: [employer] Location of provider rendering services: practice address Location of patient: address on file Patient Identification confirmed using: Name, : Yes Telehealth method: voice only Patient verbally consented to treatment: Yes Patient verbally consented to billing insurance company: Yes Patient informed of any privacy concerns related to visit: Yes Minutes spent on Phone/Video with Pt.: 13 Assessment and Plan Assessment & Plan (1) Major depression, recurrent: Code(s): F33.9 - Major depressive disorder, recurrent, unspecified Qualifiers: Active/Remission status: in full remission Qualified Code(s): F33.42 - Major depressive disorder, recurrent, in full remission (2) Anxiety, generalized: Code(s): F41.1 - Generalized anxiety disorder (3) Difficulty sleeping: Code(s): G47.9 - Sleep disorder, unspecified (4) Relationship problem with boyfriend: Code(s): Z63.0 - Problems in relationship with spouse or partner (5) Stress: Code(s): F43.9 - Reaction to severe stress, unspecified Plan Patient is doing much better with increasing dose of citalopram 40 mg she is hardly ever taking lorazepam she would like to continue with 40 mg citalopram sleeping better less stressed Medications: Refilled citalopram 40 mg PO DAILY 90 tabs 0RF 90 days Coding Level of Care Code Tele Est Pt Level 3 (22709) Diagnoses Recurrent major depressive disorder, in full remission F33.42 Active/Remission status: in full remission Anxiety, generalized F41.1 Difficulty sleeping G47.9 Relationship problem with boyfriend Z63.0 Stress F43.9
== END 2024-04-18 08:37 | disposition home or self-care (01) ==
PROVIDERS: PCP Internal Medicine; Visit Provider Internal Medicine
DX: F33.42 Major depressive disorder, recurrent, in full remission (principal); F41.1 Generalized anxiety disorder; G47.9 Sleep disorder, unspecified; Z63.0 Problems in relationship with spouse or partner; F43.9 Reaction to severe stress, unspecified
CPT/HCPCS: 99213

== ENCOUNTER 2024-06-26 08:45 | Outpatient (REF) | payer OTHER, SELFPAY | END 2024-06-26 08:46 | disposition home or self-care (01) | LOC: HO.LAB 08:45 | PROVIDERS: PCP Internal Medicine | DX: J06.9 Acute upper respiratory infection, unspecified (principal) | CPT/HCPCS: 87880 ==

== ENCOUNTER 2024-06-26 08:45 | Outpatient (AMB) | payer OTHER, SELFPAY ==
--- NOTE | 2024-06-26 08:51 | MHC.OFFWIV ---
Intake Vital Signs 06/26/24 08:52 Height 5 ft 4 in Weight 144 lb BMI 24.7 BP 108/76 Blood Pressure Location Rt brachial Position Sitting Pulse 79 Pulse Source Pulse Oximeter Temp 98.3 F Temp Source Oral Pulse Oximetry (%) 98 Oxygen Delivery Method Room Air Intake Visit Reasons: PE-severe cough, chest pain Intake Note: Patient here for cough and chest pain that has been present for over a week. Patient Tobacco Use Status: Never used Tobacco Allergies No Known Allergies [NKA] Allergy (Mild, Verified 06/26/24 08:53) NOT APPLICABLE Do you need a note to return to daycare/school/sports/work: Yes HPI HPI Comments History of Present Illness Details Patient is a 44-year-old female complaining of 10 days of a cough, sore throat, chest pain from coughing and ear pain. She states that her cough alternates between dry and productive in his definitely worse at night. She tells me she has not slept for the last 3 nights. She denies shortness of breath, fevers, nausea vomiting or diarrhea. She denies a history of asthma or COPD. She tells me she has been taking DayQuil and NyQuil without much relief. COUNTS INCLUDE [facility] BEDS AT THE [facility] Surgical History No pertinent past surgical history Family History Father HTN (hypertension) Meniere's disease Mother No problems noted. Maternal Grandmother Breast cancer Maternal Grandfather No problems noted. Paternal Grandmother Cancer Paternal Grandfather Unknown family medical history Brother No problems noted. Brother No problems noted. Sister No problems noted. Daughter No problems noted. Social History Housing: House Alcohol intake: current Alcohol intake frequency: holidays/special occasions only Patient Tobacco Use Status: Never used Tobacco e-Cigarette/Vaping Use: Never Used Second Hand Smoke Exposure: Yes service: No Current occupational status: employed Cognitive needs: No Hearing needs: No Vision needs: Yes Review of Systems Const All systems reviewed & are unremarkable except as noted in HPI and below Physical Exam Vital Signs: Last Vital Signs Temp 98.3 F 10/09/24 08:52 Pulse 79 06/26/24 08:52 BP 108/76 06/26/24 08:52 Pulse Ox 98 06/26/24 08:52 Oxygen Delivery Method Room Air 06/26/24 08:52 BMI result Body Mass Index 24.7 Const General: cooperative, comfortable, no acute distress and tired appearing Nutritional Appearance: average body habitus Orientation/consciousness: patient oriented x3 Limitations: no limitations HEENT Head: Yes normal to inspection Ears: hearing grossly normal bilaterally, external ears normal and TM's normal bilaterally General nose exam: Normal external nose present, Normal nares present and No nasal discharge present Face and sinus: Yes normal facial exam and Yes sinuses nontender Mouth: Normal oral and palatal mucosa present and moist mucous membranes Throat: Yes tonsils normal, Yes uvula midline and Yes posterior oropharynx abnormal (Erythema; no exudate) Eyes General: appearance normal, both eyes and all related structures Neck Neck: Yes normal visual inspection Resp Effort & Inspection: normal respiratory effort, able to speak in complete sentences, Actively coughing, no respiratory distress, not tachypneic, no tripod positioning and no use of accessory muscles Auscultation: clear to auscultation bilaterally and diminished lung sounds diffuse Cardio Rate: regular rate Rhythm: regular rhythm Heart sounds: normal S1 and S2 Skin General skin exam: no rashes or lesions noted Neuro General: patient oriented x3 Extrem General: Yes normal to inspection and Yes no clubbing, cyanosis or edema Assessment & Plan Assessment & Plan (1) URI (upper respiratory infection): Code(s): J06.9 - Acute upper respiratory infection, unspecified Qualifiers: URI type: unspecified URI Qualified Code(s): J06.9 - Acute upper respiratory infection, unspecified Plan: Vital signs are stable, patient is tired appearing in her lung sounds are dim, as it has been 10 days with diminished lung sounds, we did get a chest x-ray. My read of the chest x-ray was negative for a pneumonia. However as the patient has been sick for 10 days, we will prescribe an antibiotic and some cough medicine so she can get some sleep at night. We also did swab for strep which was negative; sent flu COVID and RSV testing. Plan see above Orders: Orders SARS-CoV2/FLU/RSV Today J06.9 - Acute upper respiratory infection, unspecified XR chest 2V Today R05.9 - Cough, unspecified Medications: New codeine-guaifenesin 10-100 mg/5 mL 10 mL PO Q4-6H PRN 120 mL 0RF cold symptoms amoxicillin-pot clavulanate 875-125 mg 1 tab PO Q12H 10 tabs 0RF Coding Level of Care Code Est Pt Level 4 (63477) Diagnoses Upper respiratory tract infection, unspecified type J06.9 URI type: unspecified URI
[2024-06-26 08:52] VITALS: BP 108/76; PULSE 79; TEMP 36.8; O2SAT 98; BMI 24.7
== END 2024-06-26 09:52 | disposition home or self-care (01) ==
PROVIDERS: PCP Internal Medicine; Visit Provider Physician Assistant
DX: Z13.9 Encounter for screening, unspecified (principal); J06.9 Acute upper respiratory infection, unspecified

== ENCOUNTER 2024-06-26 09:08 | Outpatient (REF) | payer OTHER, SELFPAY ==
--- NOTE | ~2024-06-26 | XR_ITS ---
EXAMINATION: XR CHEST 2 VIEW CLINICAL INFORMATION: Cough, unspecified COMPARISON: 10/27/2023 TECHNIQUE: PA and lateral views of the chest obtained. FINDINGS: The lungs are clear. There are no pleural effusions. The cardiomediastinal silhouette is normal. XR/XR chest 2V IMPRESSION: No acute cardiopulmonary disease. Electronically signed by: Milan Luther MD 06/26/2024 09:29 AM EDT
[2024-06-26 10:48] LABS: Influenza A PCR NEGATIVE (Negative); Influenza B PCR NEGATIVE (Negative); Resp Syncy Virus RNA Qual PCR NEGATIVE (Negative); SARS COV2 PCR INHOUSE NEGATIVE (Negative)
== END 2024-06-26 09:09 | disposition home or self-care (01) ==
LOC: HO.HMGCX 09:08
PROVIDERS: PCP Internal Medicine; Visit Provider Physician Assistant
DX: R05.9 Cough, unspecified (principal); J06.9 Acute upper respiratory infection, unspecified
CPT/HCPCS: 0241U; 71046

== ENCOUNTER 2025-07-08 10:02 | Outpatient (AMB) | payer OTHER, SELFPAY ==
[2025-07-08 10:05] VITALS: BP 104/68; PULSE 79; RESP 16; O2SAT 98; BMI 25.4
--- NOTE | 2025-07-08 10:05 | A.OFFPC_ITS ---
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 Accompanied by: Self / Same As Patient Allergies No Known Allergies (NKA) Allergy (Mild, Verified 07/08/25 10:10) NOT APPLICABLE Medication List - Last Reconciled 07/08/25 by Nathaniel Zeng MD citalopram 40 mg PO DAILY 30 days codeine-guaifenesin 10-100 mg/5 mL 10 mL PO Q4-6H PRN lorazepam 0.5 mg PO BEDTIME PRN omeprazole 20 mg PO DAILY 90 days Tobacco use date assessed: 07/08/25 Dental Screening Dental Screen Date: 07/08/25 Did you have a dental visit in the last 12 months?: Yes Did you have a dental problem in the last 6 months where you did not have access to dental care?: No Was dental information given to patient?: Patient has dentist HPI Med Review HPI Details History of Present Illness The patient is a 45-year-old female presenting with medication management for anxiety, depression, and GERD. Anxiety and Depression: - The patient has been taking citalopram 40 mg daily for anxiety and depression. - She experienced a lapse in medication adherence due to financial constraints and lack of insurance, resulting in a one-week period without citalopram. - Historical context includes job loss, loss of health insurance, and financial difficulties over the past six months, contributing to increased stress and emotional challenges. Chronic Gastroesophageal Reflux Disease (GERD): - The patient is on omeprazole for manag ement of chronic GERD. Medical History: - Anxiety - Depression - Chronic Gastroesophageal Reflux Diseas e (GERD) Medications: - Citalopram 40 mg, for management of an xiety and depression. - Omeprazole, for management of chronic gastroesophageal reflux disease (GERD). Social History: - Employment status: Unemployed due to j ob loss and downsizing; actively seeking employment. - Financial situation: Experienced four months without income; currently receiving EBT benefits due to financial constraints. - Family dynamics: Living with a long-te rm boyfriend who is employed and providing financial support; has a daughter. - Educational background: Holds a bachel or?s degree and license in social work. - Health insurance: Previously had [employer] insurance but [facility]. Problem List - Anxiety - Depression - Chronic Gastroesophageal Reflux Diseas e (GERD) Plan - Refill of citalopram 40 mg and omepraz ole, acknowledging the importance of continued medication adherence for management of anxiety, depression, and GERD. - Advised patient on the importance of t apering off medications like citalopram correctly to prevent withdrawal symptoms, supporting her understanding of medication management. - Discussed the potential for exploring [employer] insurance benefits to bridge coverage gaps until patient secures employment. - Encouraged continued effort in job [facility], emphasizing the benefits of securing insurance for health management. - Emphasized the importance of self-care measures, including regular physical activity and hydration, to support emotional and physical health during this challenging period. - Follow-up planned to reassess emotiona l and gastrointestinal symptoms post medication refill. f/u 6 M Review of Systems - Neurological: No headaches no dizziness - Ear nose throat: No sore throat no hearing difficulty no ear pain - Cardiovascular: No syncope, no chest pain, no palpitations - Gastrointestinal: No nausea vomiting or diarrhea - Endocrine: No polyuria polydipsia no heat intolerance - Genitourinary: No dysuria , no blood in urine Physical Exam - General: No acute distress - HEENT: No acute findings - Neck: Supple - Respiratory system: Able to talk in f ull sentences, no audible wheeze - Cardiovascular: S1-S2 regular in rate and rhythm - Gastrointestinal: No pain - Extremities: No new findings - 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 Maternal Grandmother Breast cancer Maternal Grandfather No problems noted. Paternal Grandmother Cancer Paternal Grandfather Unknown family medical history Brother No problems noted. Brother No problems noted. Sister No problems noted. Daughter No problems noted. Social History Housing: House Alcohol intake: current Alcohol intake frequency: holidays/special occasions only Patient Tobacco Use Status: Never used Tobacco e-Cigarette/Vaping Use: Never Used Second Hand Smoke Exposure: Yes service: No Current occupational status: employed Cognitive needs: No Hearing needs: No Vision needs: Yes Questionnaire PHQ-9 Over the last 2 weeks, how often have you been bothered by any of the following problems? 1. Little interest or pleasure in doing things: not at all 2. Feeling down, depressed, or hopeless: not at all 3. Trouble falling or staying asleep, or sleeping too much: not at all 4. Feeling tired or having little energy: not at all 5. Poor appetite or overeating: not at all 6. Feeling bad about yourself - or that you are a failure or have let yourself or your family down: not at all 7. Trouble concentrating on things, such as reading the newspaper or watching television: not at all 8. Moving or speaking so slowly that other people could have noticed. Or the opposite - being so fidgety or restless that you have been moving around a lot more than usual: not at all 9. Thoughts that you would be better off or of hurting yourself in some way: not at all Total score: 0 Depression Screening Interpretation: Negative Depression Screening Done: Yes 19649 - PHQ-9 Billing: Yes Source: Developed by Drs. Ric Sy, Betty Winters, Del Christensen and colleagues, with an educational ty from [employer]. Thrive Questionnaire Date Thrive assessed: 03/19/25 I am a: Patient What is your living situation today?: I have a steady place to live Within the past 12 months, did the food you bought not last and you didn't have the money to get more?: Never true Within the past 12 months, did you worry whether your food would run out before you got money to buy more?: Never true Do you have trouble paying for medicines?: No Do you have trouble getting transportation to medical appointments?: No Do you have trouble paying your heating and electricity bill?: No Do you have trouble taking care of your child, family member or friend?: No Do you have trouble with day-to-day activities such as bathing, preparing meals, shopping, managing finances, etc.?: No Are you currently unemployed and looking for a job?: Yes Are you interested in more education?: Yes Please select the resources that you would like help with: None Currently or been in a relationship where the following occur: No concerns reported THRIVE Score: 0 DALLAS-7 AMB Questionnaire DALLAS-7 Date DALLAS - 7 assessed: 07/08/25 Feeling nervous, anxious, or on edge: 0 = Not at all Not being able to stop or control worryin = Not at all Worrying too much about different things: 0 = Not at all Trouble relaxin = Not at all Being so restless that it is hard to sit still: 0 = Not at all Becoming easily annoyed or irritable: 0 = Not at all Feeling afraid as if something awful might happen: 0 = Not at all Total DALLAS-7 score (0-4 normal; 5-9 mild; 10-14 moderate; 15-21 severe): 0 Source: Developed by Drs. Ric Sy, Betty Winters, Del Christensen and colleagues, with an educational ty from [employer]. DALLAS-7 Assessment Billing DALLAS-7 Assessment Tool: DALLAS-7 Assessment 29792 Physical exam (Primary Care) Vital Signs: Last Vital Signs Pulse 79 07/08/25 10:05 Resp 16 07/08/25 10:05 BP 104/68 07/08/25 10:05 Pulse Ox 98 07/08/25 10:05 Oxygen Delivery Method Room Air 07/08/25 10:05 BMI result Body Mass Index 25.4 Tobacco/Smoking Status: Tobacco use Status Tobacco use date assessed 07/08/25 07/08/25 10:11 Patient Tobacco Use Status Never used Tobacco 07/08/25 10:11 e-Cigarette/Vaping Use Never Used 07/08/25 10:11 PHQ-9: PHQ-9 Score PHQ-9: Total score 0 07/08/25 10:11 Depression Screening Interpretation: Negative Thrive Assessment: Date of Thrive Assessment Date Thrive assessed 03/19/25 07/08/25 10:11 Currently or been in a relationship where the following occur: No concerns reported Coding Level of Care Code Est Pt Level 3 (02626) Diagnoses Recurrent major depressive disorder, in full remission F33.42 Active/Remission status: in full remission Anxiety, generalized F41.1 Chronic GERD K21.9 Financial difficulties Z59.9 Additional Codes DALLAS-7 Assessment Billing - DALLAS-7 Assessment Tool: DALLAS-7 Assessment 92666 ([id number]) PHQ-9 - 26865 - PHQ-9 Billing: Yes ([id number]) Assessment & Plan Assessment & Plan (1) Major depression, recurrent: Code(s): F33.9 - Major depressive disorder, recurrent, unspecified Category: Medical Qualifiers: Active/Remission status: in full remission Qualified Code(s): F33.42 - Major depressive disorder, recurrent, in full remission (2) Anxiety, generalized: Code(s): F41.1 - Generalized anxiety disorder Category: Medical (3) Chronic GERD: Code(s): K21.9 - Gastro-esophageal reflux disease without esophagitis Category: Medical (4) Financial difficulties: Code(s): Z59.9 - Problem related to housing and economic circumstances, unspecified Category: Social Hx Plan Problem List - Anxiety - Depression - Chronic Gastroesophageal Reflux Disease (GERD) Plan - Refill of citalopram 40 mg and omeprazole, acknowledging the importance of continued medication adherence for management of anxiety, depression, and GERD. - Advised patient on the importance of tapering off medications like citalopram correctly to prevent withdrawal symptoms, supporting her understanding of medication management. - Discussed the potential for exploring [employer] insurance benefits to bridge coverage gaps until patient secures employment. - Encouraged continued effort in job search, emphasizing the benefits of securing insurance for health management. - Emphasized the importance of self-care measures, including regular physical activity and hydration, to support emotional and physical health during this challenging period. - Follow-up planned to reassess emotional and gastrointestinal symptoms post medication refill. f/u 6 M Medications: Changed From citalopram 40 mg PO DAILY 30 days 30 tabs 0RF To citalopram 40 mg PO DAILY 90 tabs 1RF 90 days Refilled omeprazole 20 mg PO DAILY 90 caps 1RF 90 days
--- OUTSIDE RECORDS SUMMARY | 2025-07-08 11:43 | XMS_ITS | Clinical Summary ---
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 Name Role Phone Nathaniel Zeng MD Primary Care Provider [phone] Allergies No known active allergies Medications No known medications Active Problems No known active problems Social History Tobacco Use Types Packs/Day Years Used Date Smoking Tobacco: Never Smokeless Tobacco: Never Tobacco Cessation:Counseling Given: Not Answered Comments Unknown Sex and Gender Information Value Date Recorded Sex Assigned at Not on file Legal Sex Female 6:33 PM EST Gender Identity Not on file Sexual Orientation Not on file Last Filed Vital Signs Vital Sign Reading Time Taken Comments Blood Pressure 100/66 12/24/2024 7:29 PM EDT Pulse 81 12/24/2024 7:29 PM EDT Temperature 37.1 C (98.8 F) 12/24/2024 7:29 PM EDT Respiratory Rate 18 12/24/2024 7:29 PM EDT Oxygen Saturation 98% 12/24/2024 7:29 PM EDT Inhaled Oxygen Concentration - - Weight 61.2 kg (135 lb) 12/24/2024 7:29 PM EDT Height 162.6 cm (5' 4 ) 12/24/2024 7:29 PM EDT Body Mass Index 23.17 12/24/2024 7:29 PM EDT Plan of Treatment Health Maintenance Due Date Last Done Comments Hepatitis C Virus Screening 1982 HIV Screening 1995 DTaP/Tdap/Td Vaccines (1 - Tdap) 2001 Hepatitis B Vaccines (1 of 3 - 19+ 3-dose series) 2001 Pap Smear (Ages 21-65) 2003 Mammogram 2022 Influenza Vaccine 04/18/2025 COVID-19 Vaccine (2023-2 5 season) 2025 HPV Vaccines (No Doses Required) Completed Pneumococcal Vaccine: Pediat norah (0-5 Years) and At-Risk Patients (6 to 49 Years) Aged Out No longer eligible b ased on patient's age to complete this topic Insurance [place] [address] Care Teams Barber Tool Sharpener Relationship Specialty Start Date End Date Nathaniel Zeng MD [address] [place] [id number] PCP - General Internal Medicine 12/25/24
--- OUTSIDE RECORDS SUMMARY | 2025-07-08 11:43 | XMS_ITS | Clinical Summary ---
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 Name Role Phone Unavailable Primary Care Provider Unavailabl e Immunizations Immunization Administration Dates Next Due Hep B, ped/adol 03/12/1998 Td (adult) (Tenivac), 5 Lf tetanus toxoid, PF, a dsorbed 11/12/1996 Social History Tobacco Use Types Packs/Day Years Used Date Smoking Tobacco: Never Assessed Comments Unknown Sex and Gender Information Value Date Recorded Sex Assigned at Not on file Legal Sex Female 3:44 PM EDT Gender Identity Not on file Sexual Orientation Not on file Plan of Treatment Health Maintenance Due Date Last Done Comments MMR Vaccines (1 of 1 - Stand dunog series) 1983 Varicella Vaccines (1 of 2 - 13+ 2-dose series) 1995 DTaP,Tdap,and Td Vaccines (2 - Tdap) 11/13/1996 11/12/1996 Hepatitis B Vaccines (2 of 3 - 3-dose series) 04/09/1998 03/12/1998 HPV Vaccines (1 - 3-dose SCD M series) 2009 Influenza Vaccines (#1) 2025 COVID-19 Vaccine (2024-2 6 season) 2025 HIB Vaccines Aged Out No longer eligi ble based on patient's age to complete this topic Hepatitis A Vaccines Aged Out No long er eligible based on patient's age to complete this topic IPV Vaccines Aged Out No longer eligi ble based on patient's age to complete this topic Men B Vaccine Aged Out No longer elig ible based on patient's age to complete this topic Meningococcal Vaccine Aged Out No dorothy golden eligible based on patient's age to complete this topic Pneumococcal Vaccine Aged Out No long er eligible based on patient's age to complete this topic
--- OUTSIDE RECORDS SUMMARY | 2025-07-08 11:43 | XMS_ITS | Encounter Summary ---
Author Organization [facility] Address [address] [place] [address] Care Team Providers Care Neuropsychiatrist Name Role Phone Nathaniel Zeng MD Primary Care Provider [phone] Encounter Details Date Type Department Care Team (Late st Contact Info) Description 12/27/2024 Telephone [facility] [address] [phone] Sabiha Mayer, [employer] [address] [place] [address] Social History Tobacco Use Types Packs/Day Years Used Date Smoking Tobacco: Never Smokeless Tobacco: Never Comments Unknown Sex and Gender Information Value Date Recorded Sex Assigned at Not on file Legal Sex Female 6:33 PM EST Gender Identity Not on file Sexual Orientation Not on file documented as of this encounter Plan of Treatment Not on file documented as of this encounter Visit Diagnoses Not on filedocumented in this encounter Care Teams Neuropsychiatrist Relationship Specialty Start Date End Date Nathaniel Zeng MD [facility] [place] [address] PCP - General Internal Medicine 12/25/24 documented as of this encounter
--- OUTSIDE RECORDS SUMMARY | 2025-07-08 11:43 | XMS_ITS ---
Author Name [facility] Organization Unknown History of Medication Use Medication Directions Dispensed Refills Start Date End Date Stat us No known medications No known medications active Problems Problem Status Onset Date Problem Type Date of Resoluti on Source Leg mass, right active EncounterDiagnosisAct CCT Encounters Encounter Type Encounter Reason Primary Diagnosis Location Date Ambulatory Localized swelling, mass and lump, right lower limb Localized swelling, mass and lump, right lower limb [facility] 12/24/2024 Care Team Organization Name Specialty Phone Email Start Date End Da te [facility] PCP Museum 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
== END 2025-07-08 11:23 | disposition home or self-care (01) ==
LOC: HO.HMCC 10:03
PROVIDERS: PCP Internal Medicine; Visit Provider Internal Medicine
DX: F33.42 Major depressive disorder, recurrent, in full remission (principal); F41.1 Generalized anxiety disorder; K21.9 Gastro-esophageal reflux disease without esophagitis; Z59.9 Problem related to housing and economic circumstances, unspecified

== ENCOUNTER → 2025-07-08 10:02 | Outpatient (BNVA) | payer OTHER, SELFPAY | PROVIDERS: PCP Internal Medicine; Visit Provider Internal Medicine | DX: K21.9 Gastro-esophageal reflux disease without esophagitis (principal); F33.42 Major depressive disorder, recurrent, in full remission; F41.1 Generalized anxiety disorder; Z59.9 Problem related to housing and economic circumstances, unspecified | CPT/HCPCS: 96127 ==